=== PATIENT | male | born 1930 | race African-American/Black ===

== ENCOUNTER 2017-05-09 14:29 | Outpatient (CLI) | payer MEDICARE ==
--- NOTE | 2017-05-09 15:14 | RAD ---
CHEST TWO VIEWS: History: Bronchitis. Comparison: 12-08-13 FINDINGS: Lungs are without focal airspace consolidation, pneumothorax, or effusion. No large anterior osteophy elliot of the thoracic spine. Dense calcification in the transverse aorta. No focal airspace consolidati on. IMPRESSION: No acute intrathoracic abnormality. No significant change. POS: [facility]
== END 2017-05-09 14:30 | disposition home or self-care (01) ==
LOC: RAD-FRANK 14:29
PROVIDERS: ATTEND Internal Medicine
DX: J40 Bronchitis, not specified as acute or chronic (principal)
CPT/HCPCS: 71046

== ENCOUNTER 2017-05-22 14:08 | Inpatient (IN) | payer MEDICARE ==
[~2017-05-22 14:08] MED LIST: EPINEPHrine 1 MG/10 ML Abboject SYRINGE ONE
[2017-05-22 15:29] LABS: INR-International Normal Ratio 1.4; PTT 31.2 SEC (22.9-36.1); Prothrombin Time 17.1 SEC (12.0-14.7)
[2017-05-22 15:30] LABS: ALT (SGPT) 11 U/L (8-55); AST (SGOT) 20 U/L (5-34); Alkaline Phosphatase 94 U/L (40-150); Anion Gap 11 mmol/L (10-20); BUN (Urea Nitrogen) 30 mg/dL (8.4-25.7); Bilirubin, Total 0.7 mg/dL (0.2-1.2); CK (CPK) 59 U/L (30-200); Calc. Creatinine Clearance 0 mL/min (70-130); Calcium 9.1 mg/dL (7.8-10.44); Carbon Dioxide 20 mmol/L (23-31); Chloride 106 mmol/L (98-107); Estimated GFR-MDRD 40; Globulin 3.6 g/dL (2.4-3.5); Glucose 101 mg/dL (83-110); Lipase 35 U/L (8-78); Potassium 4.1 mmol/L (3.5-5.1); Protein, Total 7.6 g/dL (5.8-8.1); Sodium 133 mmol/L (136-145)
--- NOTE | 2017-05-22 15:30 | RAD ---
CHEST ONE VIEW: History: Chest pain. Comparison: 12-08-13 FINDINGS: Cardiac silhouette is magnified by projection. Pulmonary vasculature is upper limits of normal. Media stinum is midline with aortic calcification. Prominent vasculature at the lung bases is stable. Cardi ac monitor leads overlie the chest. IMPRESSION: Chronic type findings are stable. No active cardiopulmonary abnormalities are demonstrated. POS: [facility]
[2017-05-22 15:32] LABS: Hemoglobin 5.8 g/dL (14.0-18.0); Mean Corpuscular HGB CONC 30.5 g/dL (32.0-36.0); Mean Corpuscular Hemoglobin 25.3 pg (27.0-31.0); Mean Corpuscular Volume 82.9 fl (80.0-94.0); Mean Platelet Volume 8.8 fL (7.4-10.4); Platelet Count 292 thou/uL (130-400); RBC Distribution Width 21.4 % (11.5-14.5); Red Blood Cell (RBC) Count 2.29 mill/uL (4.70-6.10); White Blood Cell (WBC) Count 4.7 thou/uL (4.8-10.8)
[2017-05-22 15:33] LABS: CKMB 1.2 ng/mL (0-6.6); Troponin I 0.026 ng/mL (< 0.028)
[2017-05-22 15:55] LABS: #Lymphocytes 1.3 thou/uL (1.20-3.40); #Monocytes 0.6 thou/uL (0.11-0.59); #Neutrophils 2.8 thou/uL (1.40-6.50); %Basophils 0.4 % (0.0-1.0); %Eosinophils 0.6 % (0.0-10.0); %Lymphocytes 27.6 % (21.0-51.0); %Neutrophils 58.4 % (42.0-75.0); Anisocytosis SLIGHT = 6-15 cells (100X) (0-5/hpf); Hypochromia SLIGHT = 6-15 cells (100X) (0-5/hpf); MDiff Complete? YES; PLT Morphology Comment Appears Adequate; Polychromasia SLIGHT = 2-3 cells (100X) (0-2/hpf)
[2017-05-22] MEDS ORDERED: methylPREDNISolone Sod Succ/PF 125 MG/2 ML VIAL ONE (16:50)
[2017-05-22] MEDS ORDERED: Azithromycin 500 MG in Sodium Chloride 0.9% 250 ML 250 ML IVPB SCH (17:15)
[2017-05-22 19:09] LABS: Troponin I 0.024 ng/mL (< 0.028)
[2017-05-22] MEDS ORDERED: Ondansetron HCl/PF 4 MG/2 ML Vial IVP PRN (19:58)
[2017-05-22] MEDS ORDERED: Ondansetron ODT 4 MG TAB SL PRN (19:58)
[2017-05-22 20:17] VITALS: BMI 26.6
[2017-05-22 22:59] LABS: Troponin I 0.021 ng/mL (< 0.028)
[2017-05-23 03:09] VITALS: TEMP 98.6
[2017-05-23] MEDS ORDERED: traMADol HCl 50 MG TAB PO PRN (04:27)
[2017-05-23 05:23] VITALS: BP 127/60
--- NOTE | 2017-05-23 06:07 | HP ---
DATE OF ADMISSION: 05/22/2017 REASON FOR ADMISSION AND CHIEF COMPLAINT: Shortness of breath on exertion and chest burning. HISTORY OF PRESENT ILLNESS: Mr. Lemons is an 86-year-old -Stateless male with past medical history of chronic anemia, hypertension, status post CVA, DJD , has been having these symptoms for few weeks and but now he is getting worse. His shortness of breath got worse to a point he is not able to walk much even the short distance, he is getting short of breath, also noticed some chest burning, not real chest pain, but no nausea or vomiting. No abdominal pain. The patient states he is not feeling dizzy. Because of the worsening of symptoms, the patient decided to come to the hospital. In the ER, the patient was evaluated and found to be severely anemic with hemoglobin of 5.8, but no obvious bleeding. Patient had GI workup done the past. It did not reveal source of Gi bleeding.He also had capsule endoscopy . Pt was also evaluated by [facility] and he is being followed in [facility]per[facility] office.The patient is hemodynamically stable. He is being admitted for further evaluation and management. His initial blood pressure was 125/60, pulse of 88. PAST MEDICAL HISTORY: 1. Hypertension. 2. Chronic anemia. 3. Degenerative joint disease. 4. Status post cerebrovascular accident in 2011. PAST SURGICAL HISTORY: Nothing significant. CURRENT MEDICATIONS: The patient is supposed to be on lisinopril 5 mg daily, simvastatin 20 mg daily, allopurinol 100 mg daily, tramadol p.r.n. Supposed to be on iron supplements but patient refused to take for last few months. ALLERGIES: No known drug allergies. FAMILY HISTORY: Nothing of interest. SOCIAL HISTORY: The patient lives with family. No history of smoking. No history of alcohol intake. REVIEW OF SYSTEMS: Cardiovascular: Had chest burning and shortness of breath. Respiratory: No cough or fever. Gastrointestinal: No abdominal pain. No nausea or vomiting. Genitourinary: No blood in stool. Central nervous system : No headache, no dizziness. PHYSICAL EXAMINATION: GENERAL: The patient is alert, awake, oriented x3. VITAL SIGNS: Temperature 98, pulse 79, respirations 20, blood pressure 117/60. HEENT: Head is normocephalic, atraumatic. Pupils are equal and reactive to light. pallor +. Nasopharynx is pale and dry. Hard and soft palate, no lesions seen. SKIN: Skin turgor decreased. NECK: Supple. No JVD. LUNGS: Breath sounds diminished bilaterally. Percussion not dull bilateral. No rales, no rhonchi. HEART: S1, S2 regular. ABDOMEN: Soft, no distention, no tenderness. Normal bowel sounds present. RECTAL: no evidence for heme positive stool. CENTRAL NERVOUS SYSTEM: No focal deficit. LABORATORY AND X-RAY FINDINGS: CBC shows WBC 4.7, hemoglobin 5.8, hematocrit 18 and platelets 292. Metabolic panel: Sodium 133, potassium 4.1, chloride 106 , CO2 of 20, BUN 30, creatinine 1.9, glucose 101, CK-MB 1.2, troponin I 0.026. BNP was 259. Prothrombin time 17, INR 1.4. EKG shows normal sinus rhythm, no acute ST-T wave changes seen. Chest x-ray, chronic changes seen. ASSESSMENT: 1. Severe anemia, normocytic, symptomatic. 2. Exertional dyspnea and chest burning, possibly due to anemia. Rule out acute DE. 3. Hypertension. 4. Degenerative joint disease. 5. Status post cerebrovascular accident. 6. History of gastrointestinal workup. PLAN: 1. Vital signs q.4 hours. 2. Activity: As tolerated. 3. Allergies: No known drug allergies. 4. Hep-Lock. 5. Transfuse 2 units of packed red blood cells. 6. Continue home medication. 7. We will obtain H&H in the morning. 8. We will obtain GI consult. 9. Hematology consult. 10. troponin i q 6hrs x 2 MTDD
[2017-05-23] MEDS ORDERED: Furosemide 40 MG/4 ML VIAL SLOW IVP SCH (06:15)
[2017-05-23 06:32] LABS: Hemoglobin 9.2 g/dL (14.0-18.0); Platelet Count 209 thou/uL (130-400)
[2017-05-23 06:42] LABS: Iron 17 ug/dL (65-175); Iron Binding Capacity, Total 326 mcg/dL (261-462)
--- NOTE | 2017-05-23 06:46 | PDOC.EVN ---
Event Note - Event Note Event Note: Carlo Diaz called at 6:10am for agonal breathing with bradycardia and eventual loss of pulse. Pt had been receiving blood transfusion prior to onset of symptoms and appeared to be getting volume overloaded per night RN. Compressions were started and 1st round of Epi given. Pt was found to have a pulse again and be in sinus tach with agonal respirations. Family made wishes known that he would not want intubation. Pt was bagged until application of nonrebreather. During family discussion with and son of patient, they determined that they would not like to proceed with CPR, but would allow O2 supplementation and epi. Discussed POC to move pt to ICU and begin epi gtt. While I was discussing plan with family, patient lost pulse and CPR was restarted (approx 6:24am). As I was informed of pt's status and relayed this to son (in person) and (over the phone), the family agreed to let the patient pass peacefully. Carlo was called at 6:27am.
[2017-05-23] MEDS ORDERED: Prevnar 13-Val Conj/PF 0.5 ML SYRINGE IM ONE (09:00)
[2017-05-23] MEDS ORDERED: Lisinopril 5 MG TAB PO SCH (09:00)
[2017-05-23] MEDS ORDERED: FLUoxetine HCl 10 MG CAP PO SCH (09:00)
[2017-05-23] MEDS ORDERED: Atorvastatin Calcium 20 MG TAB PO SCH (09:00)
[2017-05-23] MEDS ORDERED: Allopurinol 300 MG TAB PO SCH (09:00)
[2017-05-23] MEDS ORDERED: FLU VACC TS2017-18 (>65YR) 0.5 ML SYRINGE IM ONE (09:00)
[2017-05-23] MEDS ORDERED: Aspirin 81 mg Enteric Coated Tablet PO SCH (09:00)
[2017-05-23] MEDS ORDERED: Furosemide 20 MG TAB PO SCH (09:00)
[2017-05-23] MEDS ORDERED: Pregabalin 50 MG CAP PO SCH (09:00)
--- NOTE | 2017-05-25 14:58 | EKG ---
Test Reason : CP Blood Pressure : / mmHG Vent. Rate : 079 BPM Atrial Rate : 079 BPM P-R Int : 194 ms QRS Dur : 088 ms QT Int : 402 ms P-R-T Axes : 016 027 034 degrees QTc Int : 460 ms Normal sinus rhythm Nonspecific ST and T wave abnormality Abnormal ECG Confirmed by KYLE SNIDER DO ([id number]), videotape editor FRANKLYN TSAI ([id number]) on 05/25/2017 2:58:27 PM Referred By: [facility] Confirmed By:KYLE SNIDER DO
--- NOTE | 2017-06-05 07:01 | DS ---
DATE OF ADMISSION: 05/22/2017 DATE OF : 05/23/2017 ADMITTING DIAGNOSES: 1. Severe anemia, symptomatic. 2. Exertional dyspnea and chest burning, possibly due to anemia, rule out acute myocardial infarctio n. 3. Hypertension. 4. Degenerative joint disease. 5. Status post cerebrovascular accident. FINAL DIAGNOSES: 1. Status post cardiac arrest. 2. Acute respiratory failure. 3. Severe anemia, symptomatic. 4. Exertional dyspnea and chest burning. 5. Hypertension. 6. Degenerative joint disease. 7. History of cerebrovascular accident. 8. History of gastrointestinal workup. BRIEF SUMMARY OF HOSPITAL COURSE: Mr. Lemons was an 86-year-old male admitted [facility] of severe anemia. The patient has been having weakness and exertional dyspnea. He also noticed t o have some chest burning as well. The patient was also found to be severely anemic with hemoglobin of 5.8 on admission, but he was hemodynamically stable. It was advised to patient receive 2 units of packed red blood cells in view of his severe anemia, which is symptomatic. The patient did receive 2 units of blood. His H&H improved to 9.2 by 05/23/2017. His serum iron was 17 with some TIBC of 326 , ferritin level was 25. 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 In a few minutes, patient went into cardiac arrest and code was called. The patient underwent CPR, but family intervened and made him DNR. They did not want him to be intubated. Even the CPR was stoppe d, they wanted only chemical code, which was done, but patient could not be revived. He was pronounc ed on the 05/24/2017. Family was at bedside at that time. His son was there with him, and the wi fe was notified.
== END 2017-05-23 10:15 | disposition expired | DRG 811 ==
LOC: ERS 14:08 → 2NO 16:50
PROVIDERS: ADMIT Internal Medicine; ATTEND Internal Medicine
PROC: 5A12012 Performance of Cardiac Output, Single, Manual (ICD-10-PCS; principal; 2017-05-23)
DX: D64.9 Anemia, unspecified (principal); J96.00 Acute respiratory failure, unspecified whether with hypoxia or hypercapnia; I46.9 Cardiac arrest, cause unspecified; Z66 Do not resuscitate; I10 Essential (primary) hypertension; M19.90 Unspecified osteoarthritis, unspecified site; Z86.73 Personal history of transient ischemic attack (TIA), and cerebral infarction without residual deficits; Z79.899 Other long term (current) drug therapy
CPT/HCPCS: 36415; 36416; 36430; 71045; 80053; 82274; 82553; 82607; 82728; 82746; 83540; 83550; 83690; 83880; 84484; 85014; 85018; 85025; 85049; 85610; 85730; 86850; 86900; 86901; 93005; 94640; 94760; 96374; 96375; A4216; J0171; J0456; J0696; J1940; J2930; J7050; J7620; P9016